=== PATIENT | male | born 1995 | race Caucasian/White ===

== ENCOUNTER 2017-12-03 22:47 | Emergency (ER) | payer OTHER ==
[2017-12-03] MEDS ORDERED: Neomycin-Polymyxin-Hc 7.5 ML BOT ONE (22:56)
[2017-12-03] MEDS ORDERED: Fluorescein Opthalmic Strip ONE (22:56)
== END 2017-12-03 23:05 | disposition home or self-care (01) ==
LOC: BURERS 22:47
DX: H16.133 Photokeratitis, bilateral (principal)
CPT/HCPCS: 99283